=== PATIENT | female | born 1970 ===

== ENCOUNTER 2020-03-11 14:43 | Emergency (ER) | payer SELFPAY ==
[~2020-03-11] VITALS: Ht 170.2 cm; Wt 100.0 kg
[2020-03-11] MEDS ORDERED: LIDOCAINE/PF 2% 5 ML SYRINGE IVP ONE (14:58)
[2020-03-11] MEDS ORDERED: SODIUM BICARBONATE [ADULT] 8.4% 50 MEQ/50 ML SYRINGE IVP ONE (14:58)
[2020-03-11] MEDS ORDERED: 0.9% SODIUM CHLORIDE 10 ML SYRINGE IVP ONE (14:58)
[2020-03-11] MEDS ORDERED: EPINEPHrine 1:10,000 [1 MG/10 ML] SYRINGE IVP ONE (14:58)
[2020-03-11] MEDS ORDERED: ATROPINE SULFATE 0.1 MG/ML 10 ML SYRINGE IVP ONE (14:58)
[2020-03-11 15:35] LABS: GLUCOSE,POINT OF CARE 336 MG/DL (70-110)
[2020-03-11] MEDS ORDERED: SODIUM CHLORIDE 0.9% 1,000 ML IV ONE ×3 (15:45→19:15)
[2020-03-11] MEDS ORDERED: LORazepam 2 MG/ML VIAL IM ONE (16:45)
[2020-03-11] MEDS ORDERED: LORazepam 2 MG/ML VIAL IVP ONE ×3 (17:00→20:00)
[2020-03-11 17:25] LABS: HEMATOCRIT 43.4 % (36-46); MEAN CORPUSCULAR HEMOGLOBIN 33.7 pg (26.0-34.0); MEAN CORPUSCULAR HGB CONC 32.3 G/dL (31.0-37.0); MEAN CORPUSCULAR VOLUME 104 fL (80-100); RED BLOOD CELL COUNT(AUTO) 4.16 MIL/uL (4.00-5.20); RED CELL DISTRIBUTION WIDTH 14.7 % (11.5-14.5)
[2020-03-11 17:40] LABS: GLUCOSE,POINT OF CARE 308 MG/DL (70-110)
[2020-03-11 17:51] LABS: ANION GAP 23 mmol/L (8-16); CALCIUM, TOTAL 9.4 mg/dL (8.8-10.5); CARBON DIOXIDE 15 mmol/L (22-29); CHLORIDE 101 mmol/L (98-107); CREATININE 2.07 mg/dL (0.60-1.30); GLOMERULAR FILTR. RATE CALC 25 mL/min (>60); GLUCOSE,RANDOM 369 mg/dL (70-110); POTASSIUM 5.2 mmol/L (3.5-5.1); SODIUM SERUM 139 mmol/L (136-145); UREA NITROGEN, BLOOD 68 mg/dL (7-18)
[2020-03-11 17:59] LABS: ALANINE AMINOTRANSFERASE 143 U/L (12-78); ALKALINE PHOSPHATASE 178 U/L (46-116); ASPARTATE AMINOTRANSFERASE 633 U/L (15-37); BILIRUBIN,TOTAL 4.2 mg/dL (0.1-1.0); TOTAL PROTEIN, SERUM 7.2 g/dL (6.4-8.2)
[2020-03-11 18:00] LABS: ALBUMIN 1.4 g/dL (3.4-5.0)
[2020-03-11] MEDS ORDERED: ACETAMINOPHEN 650 MG RECTAL SUPPOSITORY PR ONE (18:00)
[2020-03-11 18:24] LABS: COVID AG,FIA SOURCE NASOPHARYNGEAL
[2020-03-11] MEDS ORDERED: PIPERACILLIN/TAZO 3.375 GM/D5W 50 ML IV ONE (18:30)
[2020-03-11 18:43] LABS: PLATELET COUNT (AUTO) 110 K/uL (150-450)
[2020-03-11 18:46] LABS: PATHOLOGY REVIEW, DIFF YES
[2020-03-11 18:50] LABS: INR 1.4 (0.9-1.1); PROTHROMBIN TIME 14.6 SEC (9.4-11.6)
[2020-03-11 19:07] LABS: APPEARANCE,URINE TURBID (CLEAR); GLUCOSE, URINE (UA) NEGATIVE (NEGATIVE); KETONES,URINE 15 mg/dL (NEGATIVE); LEUKOCYTE ESTERASE ,URINE LARGE (NEGATIVE); NITRATE,URINE POSITIVE (NEGATIVE); OCCULT BLOOD,URINE MODERATE (NEGATIVE); PROTEIN,URINE SEE CONFIRM (NEGATIVE)
[2020-03-11 19:08] LABS: BILIRUBIN,URINE PRELIM. POSITIVE (NEGATIVE)
[2020-03-11 19:13] LABS: SULFOSALICYLIC ACID,URINE 4+ (Negative)
[2020-03-11 19:14] LABS: BACTERIA,URINE Many /HPF (None Seen)
[2020-03-11 19:15] LABS: SQUAMOUS EPITHELIAL CELL,UR Moderate /LPF (None Seen); WBC,URINE 51-100 /HPF (0-5)
[2020-03-11] MEDS ORDERED: VANCOMYCIN HCL 1 GM/D5% WATER 200 ML IV ONE (19:15)
[2020-03-11 19:20] VITALS: BP 145/94
[2020-03-11 19:42] LABS: ABG A-A DIFF O2 19.5 mmHg (10-20.0); ABG BASE EXCESS -19.3 mmol/L (-2.0-3.0); ABG CARBOXYHEMOGLOBIN 0.7 % (0.0-1.5); ABG METHEMOGLOBIN 0.1 % (0.0-1.5); ABG OXYGEN CONTENT 19.1 mL/dL (15.0-23.0); ABG OXYGEN SATURATION 94.5 % (95.0-98.0); ABG OXYHEMOGLOBIN 93.7 % (94.0-100.0); ABG PCO2 21 mmHg (35-45); ABG PH 7.206 (7.35-7.450); ABG TOTAL HEMOGLOBIN 14.5 G/dL (12.0-18.0); O2 DEVICE,BLOOD GAS ROOM AIR (ROOM AIR); PO2, ARTERIAL BG 102.9 mmHg (88.0-96.0); SITE, BLOOD GAS RT RADIAL; SOURCE, BLOOD GAS ARTERIAL; TEMPERATURE, FAHRENHEIT, BG 104.1 FAHREN (96.0-98.6)
[2020-03-11] MEDS ORDERED: POTASSIUM CHLORIDE 40 MEQ in SODIUM CHLORIDE 0.45% 1,000 ML IV PRN (19:45)
[2020-03-11] MEDS ORDERED: SODIUM CHLORIDE 0.9% 1,000 ML IV SCH (19:45)
[2020-03-11] MEDS ORDERED: DEXTROSE 50%-WATER 25 GM/50 ML SYRINGE IVP PRN (19:45)
[2020-03-11] MEDS ORDERED: DEXTROSE 5%-0.45% SODIUM CHL 1,000 ML IV PRN (19:45)
[2020-03-11] MEDS ORDERED: INSULIN REGULAR, HUMAN 100 UNITS/ML IVP PRN (19:45)
[2020-03-11] MEDS ORDERED: INSULIN REGULAR, HUMAN 100 UNITS/ML IVP ONE (19:45)
[2020-03-11] MEDS ORDERED: POTASSIUM CHL 20 MEQ/0.45% NS 1,000 ML IV PRN (19:45)
[2020-03-11] MEDS ORDERED: INSULIN REGULAR, HUMAN 100 UNITS in SODIUM CHLORIDE 0.9% 99 ML IV PRN ×2 (19:45)
[2020-03-11] MEDS ORDERED: SODIUM CHLORIDE 0.45% 1,000 ML IV PRN (19:45)
[2020-03-11] MEDS ORDERED: 0.9% SODIUM CHLORIDE 10 ML SYRINGE IVP PRN (20:00)
[2020-03-11] MEDS ORDERED: MAGNESIUM SULFATE 2 GM, MVI, ADULT NO.1 WITH VIT K 10 ML, THIAMINE 100 MG, FOLIC ACID 1... IV ONE ×5 (20:00)
[2020-03-11] MEDS ORDERED: ACETAMINOPHEN 325 MG TABLET PO PRN (20:00)
[2020-03-11] MEDS ORDERED: ONDANSETRON HCL 4 MG/2 ML VIAL IVP PRN (20:00)
[2020-03-11 20:01] LABS: HEMATOCRIT 42.4 % (36-46); HEMOGLOBIN 13.4 g/dL (12.0-16.0); MEAN CORPUSCULAR HEMOGLOBIN 33.5 pg (26.0-34.0); MEAN CORPUSCULAR HGB CONC 31.6 G/dL (31.0-37.0); MEAN CORPUSCULAR VOLUME 106 fL (80-100); RED CELL DISTRIBUTION WIDTH 15.2 % (11.5-14.5)
[2020-03-11] MEDS ORDERED: RAPID SEQUENCE KIT [RSI] 1 EACH KIT MISC ONE (20:25)
[2020-03-11] MEDS ORDERED: MIDAZOLAM HCL 100 MG in DEXTROSE 5%-WATER 180 ML IV PRN (20:45)
[2020-03-11 20:50] LABS: SALICYLATE 2.8 mg/dL (2.8-20.0)
[2020-03-11] MEDS ORDERED: NOREPINEPHRINE 4 MG/D5%-WATER 250 ML IV PRN (21:15)
[2020-03-11 21:22] LABS: ACETONE,BLOOD NEGATIVE (NEGATIVE)
[2020-03-11 22:12] LABS: LACTIC ACID 16.9 mmol/L (0.4-2.0)
[2020-03-11 22:31] LABS: ABG A-A DIFF O2 430.4 mmHg (10-20.0); ABG BASE EXCESS -26.9 mmol/L (-2.0-3.0); ABG CARBOXYHEMOGLOBIN 0.3 % (0.0-1.5); ABG METHEMOGLOBIN 0.4 % (0.0-1.5); ABG OXYGEN CONTENT 18.2 mL/dL (15.0-23.0); ABG OXYGEN SATURATION 98.5 % (95.0-98.0); ABG OXYHEMOGLOBIN 97.8 % (94.0-100.0); ABG PCO2 44 mmHg (35-45); ABG TOTAL HEMOGLOBIN 12.9 G/dL (12.0-18.0); PO2, ARTERIAL BG 231.5 mmHg (88.0-96.0); SOURCE, BLOOD GAS ARTERIAL; TEMPERATURE, FAHRENHEIT, BG 102.9 FAHREN (96.0-98.6)
[2020-03-11 22:32] LABS: ABG HCO3 6.3 mmol/L (22.0-26.0); ABG PH 6.821 (7.35-7.450); SITE, BLOOD GAS ARTERIAL LINE
[2020-03-11 22:33] LABS: O2 DEVICE,BLOOD GAS VENTILATOR (ROOM AIR); PEEP,BG 5 cm H2O; VT, ABG 450 ml
[2020-03-11 22:38] LABS: PLATELET COUNT (AUTO) 104 K/uL (150-450)
[2020-03-11 22:44] LABS: BAND NEUTROPHILS % (MANUAL) 42 % (0-5); LYMPHOCYTES % (MANUAL) 4 % (22-44); MONOCYTES % (MANUAL) 6 % (2-9); MYELOCYTES % 2 % (0-0); REACTIVE LYMPHOCYTES 1 % (0-0); SEGMENTED NEUTROPHILS % 45 % (40-70)
[2020-03-11 22:45] LABS: PLATELET MORPHOLOGY COMMENT GIANT PLTS PRESENT
[2020-03-11 22:47] LABS: WBC MORPHOLOGY TOXIC GRANULATION
[2020-03-11 22:47] LABS: GLUCOSE,POINT OF CARE 102 MG/DL (70-110)
[2020-03-11 22:57] LABS: ACETAMINOPHEN < 2 mcg/mL (10-30)
[2020-03-11 22:58] LABS: LIPASE 118 U/L (73-393)
[2020-03-11] MEDS ORDERED: PHENYLEPHRINE 200 MG/D5%-WATER 250 ML IV PRN (23:15)
[2020-03-12] MEDS ORDERED: PIPERACILLIN/TAZO 3.375 GM/D5W 50 ML IV SCH
[2020-03-12 01:29] LABS: CALCIUM, TOTAL 8.7 mg/dL (8.8-10.5); CREATININE 3.29 mg/dL (0.60-1.30)
[2020-03-12 01:40] LABS: POTASSIUM 7.5 mmol/L (3.5-5.1)
[2020-03-12 02:01] LABS: CREATINE KINASE, TOTAL ONLY 3328 U/L (26-192)
[2020-03-15 13:11] LABS: BAND NEUTROPHILS % (MANUAL) 47 % (0-5); LYMPHOCYTES % (MANUAL) 7 % (22-44); MONOCYTES % (MANUAL) 3 % (2-9); REACTIVE LYMPHOCYTES 3 % (0-0); SEGMENTED NEUTROPHILS % 38 % (40-70)
[2020-03-15 13:12] LABS: BASOPHILS % (MANUAL) 0 % (0-2); EOSINOPHILS % (MANUAL) 0 % (1-6); METAMYELOCYTES % 0 % (0-0); MYELOCYTES % 2 % (0-0); PLATELET MORPHOLOGY COMMENT GIANT PLTS PRESENT; WBC MORPHOLOGY TOXIC GRANULATION
== END 2020-03-12 06:16 ==
LOC: EMS 14:57
DX: I46.9 Cardiac arrest, cause unspecified (principal); E87.2 Acidosis; J96.90 Respiratory failure, unspecified, unspecified whether with hypoxia or hypercapnia; E11.10 Type 2 diabetes mellitus with ketoacidosis without coma; R41.82 Altered mental status, unspecified; N19 Unspecified kidney failure; F10.239 Alcohol dependence with withdrawal, unspecified; R34 Anuria and oliguria; R79.89 Other specified abnormal findings of blood chemistry; F17.210 Nicotine dependence, cigarettes, uncomplicated; Z20.822 Contact with and (suspected) exposure to COVID-19; Y90.0 Blood alcohol level of less than 20 mg/100 ml
CPT/HCPCS: 31500; 36415; 36600; 70450; 71045; 72125; 74176; 76705; 80048; 80053; 81001; 82009; 82140; 82550; 82805; 82962; 83605; 83690; 83880; 84484; 84702; 85025; 85610; 85730; 87040; 87086; 87205; 87426; 92950; 93005; 96361; 96365; 96367; 96375; 96376; 99291; 99292; A9575; G0480; J0171; J0461; J2060; J2370; J2543; J3370; J3490 ×3; J7030; U0003; X7700; 94002; G0481; J1815; J2250; J3411; J3475; J7050; J7060